=== PATIENT | female | born 1970 | race Caucasian/White ===

== ENCOUNTER 2017-01-15 18:53 | Emergency (ER) | payer MEDICAID ==
[~2017-01-15] VITALS: Ht 167.6 cm; Wt 78.0 kg
[2017-01-15] MEDS ORDERED: SODIUM CHLORIDE 0.9% 1,000 ML IV ONE (20:32)
[2017-01-15] MEDS ORDERED: KETOROLAC 30MG/ML VIAL IV STA (20:32)
[2017-01-15] MEDS ORDERED: ONDANSETRON HCL 4MG/2ML VIAL IV STA (20:32)
[2017-01-15 21:00] LABS: BASOPHILS % 0.5 % (0.0-2.0); EOSINOPHILS % 1.7 % (0.0-5.0); HEMATOCRIT. 37.9 % (36.0-48.0); HEMOGLOBIN. 12.6 g/dL (12.0-16.0); LYMPHOCYTES % 19.1 % (20.0-50.0); MEAN CORPUSCULAR HEMOGLOBIN 29.6 pg (28.0-32.0); MEAN CORPUSCULAR HGB CONC 33.3 g/dL (31.0-37.0); MEAN CORPUSCULAR VOLUME 88.7 fL (81.0-99.0); MEAN PLATELET VOLUME 9.5 fl (7.4-10.4); MONOCYTES % 4.2 % (2.0-8.0); NEUTROPHILS % 74.5 % (40.0-76.0); PLATELET 190 x1000/uL (130-400); RED BLOOD CELL COUNT 4.27 mill/uL (4.2-5.4); RED CELL DISTRIBUTION WIDTH 13.1 % (11.6-14.6); WHITE BLOOD COUNT 11.4 x1000/uL (4.5-11.0)
[2017-01-15 21:09] LABS: ALANINE AMINOTRANSFERASE 25 IU/L (13-61); ALBUMIN 4.2 g/dL (3.4-5.0); ANION GAP 15; CALCIUM 9.4 mg/dL (8.5-10.1); CARBON DIOXIDE 25 mEq/L (21-32); CHLORIDE 103 mEq/L (98-107); INDEX HEMOLYSI 1 (1-3); INDEX ICTERIC 1 (1-4); INDEX LIPEMIC 1 (1-3); UREA NITROGEN BLOOD 13 mg/dL (7-21); eGFR > 60 mL/min (>60)
[2017-01-15] MEDS ORDERED: ONDANSETRON HCL 4MG/2ML VIAL IV ONE (23:30)
[2017-01-15] MEDS ORDERED: MORPHINE SULFATE 4 MG/ML CPJ (NOT FOR IM USE) IV ONE (23:30)
[2017-01-16] MEDS ORDERED: INSULIN REGULAR 0.5UNIT/ML SYR(NEO) IV ONE (00:45)
[2017-01-16] MEDS ORDERED: INSULIN DETEMIR UD 100 UNITS/ML SYR SUBCUT ONE (01:00)
[2017-01-16] MEDS ORDERED: ONDANSETRON HCL 4MG/2ML VIAL IV ONE (02:15)
[2017-01-16] MEDS ORDERED: SODIUM CHLORIDE 0.9% 1,000 ML IV ONE (02:15)
[2017-01-16 07:40] VITALS: BP 155/75
== END 2017-01-16 07:50 | disposition short-term general hospital (02) ==
LOC: ER 18:54
DX: R51 Headache (principal); E11.65 Type 2 diabetes mellitus with hyperglycemia; D72.829 Elevated white blood cell count, unspecified; I10 Essential (primary) hypertension; R11.2 Nausea with vomiting, unspecified; E78.00 Pure hypercholesterolemia, unspecified; Z98.51 Tubal ligation status
CPT/HCPCS: 36415; 70450; 70551; 80053; 81025; 82962; 85025; 96361; 96372; 96374; 96375; 96376; 99285; J1815; J1885; J2270; J2405; J7030; Z7610

== ENCOUNTER 2020-07-22 08:56 | Inpatient (IN) | payer MEDICAID, OTHER ==
[~2020-07-22] VITALS: Ht 165.1 cm; Wt 61.7 kg
[2020-07-22] MEDS ORDERED: MORPHINE SULFATE 4 MG/ML CPJ (NOT FOR IM USE) IV STA (09:09)
[2020-07-22] MEDS ORDERED: ONDANSETRON HCL 4MG/2ML INJ IV STA (09:09)
[2020-07-22 09:36] LABS: BASOPHILS % 0.4 % (0.0-2.0); EOSINOPHILS % 0.8 % (0.0-5.0); HEMATOCRIT. 32.9 % (36.0-48.0); HEMOGLOBIN. 11.1 g/dL (12.0-16.0); MEAN CORPUSCULAR HEMOGLOBIN 29.6 pg (28.0-32.0); MEAN CORPUSCULAR VOLUME 87.6 fL (81.0-99.0); MEAN PLATELET VOLUME 9.2 fl (7.4-10.4); MONOCYTES % 4.4 % (2.0-8.0); NEUTROPHILS % 68.4 % (40.0-76.0); PLATELET 159 x1000/uL (130-400); RED BLOOD CELL COUNT 3.75 mill/uL (4.2-5.4)
[2020-07-22 09:46] LABS: CHLORIDE 111 mEq/L (98-107)
[2020-07-22] MEDS: METOPROLOL TARTRATE 25MG TABLET PO SCH ×2 (14:15→21:24)
[2020-07-22] MEDS ORDERED: NITROGLYCERIN 0.4MG TABLET SL SL PRN (14:30)
[2020-07-22] MEDS: ENOXAPARIN 40MG/0.4ML SYR SUBCUT SCH (15:00)
[2020-07-22] MEDS ORDERED: HYDROCODONE/ACETAMINOPHEN 5/325MG TABLET PO PRN (15:00)
[2020-07-22] MEDS ORDERED: CLONIDINE 0.1MG TABLET PO PRN (15:00)
[2020-07-22] MEDS ORDERED: DOCUSATE SODIUM 100MG CAPSULE PO PRN (15:00)
[2020-07-22] MEDS ORDERED: MAGNESIUM/ALUMINUM HYDROXIDE/SIMETHICONE 30ML UDC PO PRN (15:00)
[2020-07-22] MEDS ORDERED: ACETAMINOPHEN 325MG TABLET PO PRN (15:00)
[2020-07-22 15:26] LABS: CREATINE KINASE 107 IU/L (26-192)
[2020-07-22 15:28] LABS: CREATINE KINASE MB FRACTION < 1.0 ng/mL (0.5-3.6)
[2020-07-22 18:00] VITALS: BP_SYST 175; BP_DIAS 63; BP_DIAS 66
[2020-07-22 20:00] VITALS: BP 126/69
[2020-07-22] MEDS: ONDANSETRON HCL 4MG/2ML INJ IV PRN (20:59)
[2020-07-22] MEDS: ATORVASTATIN CALCIUM 20MG TABLET PO SCH (21:24)
[2020-07-22] MEDS: AMLODIPINE 2.5MG TABLET PO SCH (21:24)
[2020-07-22] MEDS ORDERED: DEXTROSE 50% WATER 50ML SYRINGE IV PRN (22:15)
[2020-07-22] MEDS ORDERED: INSULIN GLARGINE UD 100 UNITS/ML SYR SUBCUT SCH (23:30)
[2020-07-23] VITALS: BP 110/50
[2020-07-23 04:00] VITALS: BP 104/50
[2020-07-23] MEDS ORDERED: ACET-2708 MT (04:14)
[2020-07-23] MEDS ORDERED: MECL-115 PO (04:14)
[2020-07-23] MEDS ORDERED: METF-816 MT (04:14)
[2020-07-23] MEDS ORDERED: ASPI-1158 MT (04:14)
[2020-07-23] MEDS ORDERED: ATOR10TA69 PO (04:14)
[2020-07-23] MEDS ORDERED: ENAL20TA MT (04:14)
[2020-07-23 06:21] LABS: BASOPHILS % 0.3 % (0.0-2.0); EOSINOPHILS % 0.4 % (0.0-5.0); HEMATOCRIT. 34.4 % (36.0-48.0); HEMOGLOBIN. 11.4 g/dL (12.0-16.0); LYMPHOCYTES % 28.7 % (20.0-50.0); MEAN CORPUSCULAR HEMOGLOBIN 28.8 pg (28.0-32.0); MEAN CORPUSCULAR VOLUME 87.2 fL (81.0-99.0); MEAN PLATELET VOLUME 10.2 fl (7.4-10.4); MONOCYTES % 4.4 % (2.0-8.0); NEUTROPHILS % 66.2 % (40.0-76.0); PLATELET 169 x1000/uL (130-400); RED BLOOD CELL COUNT 3.95 mill/uL (4.2-5.4); RED CELL DISTRIBUTION WIDTH 15.2 % (11.6-14.6)
[2020-07-23] MEDS: INSULIN LISPRO 100 UNITS/ML SUBCUT SCH ×4 (06:27→21:55)
[2020-07-23] MEDS: BLOOD SUGAR DIAGNOSTIC STRIP TEST SCH ×4 (06:27→21:42)
[2020-07-23] MEDS: OMEPRAZOLE 20MG CAPSULE EXTENDED RELEASE PO SCH (06:43)
[2020-07-23 06:59] LABS: CHLORIDE 108 mEq/L (98-107)
[2020-07-23 07:06] LABS: PHOSPHORUS 4.3 mg/dL (2.5-4.9)
[2020-07-23 07:07] LABS: LDL CHOLESTEROL 86 mg/dL (5-100)
[2020-07-23 07:09] LABS: HDL CHOLESTEROL 43 mg/dL (40-59); T4 FREE 0.89 ng/dL (0.76-1.46)
[2020-07-23 08:00] VITALS: BP 146/52
[2020-07-23] MEDS: AMLODIPINE 2.5MG TABLET PO SCH ×2 (09:18→21:43)
[2020-07-23] MEDS: ASPIRIN 81MG TABLET PO SCH (09:18)
[2020-07-23] MEDS: METOPROLOL TARTRATE 25MG TABLET PO SCH ×2 (09:18→21:44)
[2020-07-23 12:00] VITALS: BP 147/47
[2020-07-23] MEDS ORDERED: IOHEXOL-350 100 ML BOTTLE ONE (12:52)
[2020-07-23] MEDS: CELECOXIB 100MG CAPSULE PO SCH (13:21)
[2020-07-23] MEDS: ONDANSETRON HCL 4MG/2ML INJ IV PRN (13:22)
[2020-07-23 16:03] VITALS: BP 101/56
[2020-07-23] MEDS: METFORMIN HCL 500MG TABLET PO SCH (16:42)
[2020-07-23] MEDS: ENOXAPARIN 40MG/0.4ML SYR SUBCUT SCH (16:42)
[2020-07-23 20:00] VITALS: BP 121/59
[2020-07-23] MEDS: ATORVASTATIN CALCIUM 20MG TABLET PO SCH (21:43)
[2020-07-24] VITALS: BP 126/48
[2020-07-24 04:00] VITALS: BP 121/57
[2020-07-24 06:13] LABS: BASOPHILS % 0.4 % (0.0-2.0); EOSINOPHILS % 1.4 % (0.0-5.0); HEMATOCRIT. 34.6 % (36.0-48.0); HEMOGLOBIN. 11.3 g/dL (12.0-16.0); LYMPHOCYTES % 36.2 % (20.0-50.0); MEAN CORPUSCULAR HEMOGLOBIN 28.5 pg (28.0-32.0); MEAN CORPUSCULAR VOLUME 87.2 fL (81.0-99.0); MEAN PLATELET VOLUME 9.8 fl (7.4-10.4); MONOCYTES % 6.1 % (2.0-8.0); NEUTROPHILS % 55.9 % (40.0-76.0); PLATELET 162 x1000/uL (130-400); RED BLOOD CELL COUNT 3.97 mill/uL (4.2-5.4); RED CELL DISTRIBUTION WIDTH 14.9 % (11.6-14.6)
[2020-07-24] MEDS: METFORMIN HCL 500MG TABLET PO SCH (06:47)
[2020-07-24] MEDS: OMEPRAZOLE 20MG CAPSULE EXTENDED RELEASE PO SCH (06:47)
[2020-07-24] MEDS: BLOOD SUGAR DIAGNOSTIC STRIP TEST SCH ×2 (06:50→11:58)
[2020-07-24] MEDS: INSULIN LISPRO 100 UNITS/ML SUBCUT SCH ×2 (06:50→11:58)
[2020-07-24 07:22] LABS: CHLORIDE 107 mEq/L (98-107)
[2020-07-24 08:00] VITALS: BP 129/60
[2020-07-24] MEDS: AMLODIPINE 2.5MG TABLET PO SCH (08:30)
[2020-07-24] MEDS: CELECOXIB 100MG CAPSULE PO SCH (08:30)
[2020-07-24] MEDS: METOPROLOL TARTRATE 25MG TABLET PO SCH (08:30)
[2020-07-24] MEDS: ASPIRIN 81MG TABLET PO SCH (08:30)
[2020-07-24 12:00] VITALS: BP 111/54
[2020-07-24 13:04] VITALS: BP 111/54
== END 2020-07-24 14:05 | disposition home or self-care (01) | DRG 203 ==
LOC: ER 08:56 → 5WST 10:15 → ENRESERV 16:15
PROVIDERS: ADMIT Internal Medicine; ATTEND Internal Medicine
DX: M94.0 Chondrocostal junction syndrome [Tietze] (principal); R07.89 Other chest pain; E11.9 Type 2 diabetes mellitus without complications; E78.00 Pure hypercholesterolemia, unspecified; I10 Essential (primary) hypertension; E78.5 Hyperlipidemia, unspecified; E87.8 Other disorders of electrolyte and fluid balance, not elsewhere classified; D64.9 Anemia, unspecified; Z88.0 Allergy status to penicillin; Z98.51 Tubal ligation status
CPT/HCPCS: 36415; 71045; 71275; 80048; 80053; 80061; 82550; 82553; 82962; 83036; 83735; 83880; 84100; 84439; 84443; 84484; 85025; 93005; 93306; 93970; 99285; J1650; J1815; J2270; J2405; Q9967

== ENCOUNTER 2022-07-25 08:59 | Emergency (ER) | payer MEDICAID ==
[~2022-07-25] VITALS: Ht 157.5 cm; Wt 69.0 kg
[~2022-07-25 08:59] MED LIST: ACET-2708 MT; ASPI-1406 MT; ATOR10TA69 PO; ENAL20TA18 MT; MECL-115 PO; METF-874 MT
[2022-07-25] MEDS ORDERED: KETOROLAC 30MG/ML VIAL IV STA (09:54)
[2022-07-25] MEDS ORDERED: METOCLOPRAMIDE HCL 10MG/2ML VIAL IV ONE (10:00)
[2022-07-25 10:20] LABS: CHLORIDE 107 mEq/L (98-107); HEMOGLOBIN. 12.1 g/dL (12.0-16.0); MEAN CORPUSCULAR HEMOGLOBIN 29.1 pg (28.0-32.0); MEAN CORPUSCULAR VOLUME 89.2 fL (81.0-99.0); MEAN PLATELET VOLUME 9.7 fl (7.4-10.4); PLATELET 175 x1000/uL (130-400); RED BLOOD CELL COUNT 4.15 mill/uL (4.2-5.4); RED CELL DISTRIBUTION WIDTH 14.3 % (11.6-14.6)
[2022-07-25 11:40] LABS: PLATELET ESTIMATE NORMAL
[2022-07-25 11:50] VITALS: BP 171/72
== END 2022-07-25 12:18 | disposition home or self-care (01) ==
LOC: ER 09:10 → EDBEDREQ 11:30 → ER 12:18 → CANBEDREQ 13:52
DX: R51.9 Headache, unspecified (principal); I10 Essential (primary) hypertension; E11.9 Type 2 diabetes mellitus without complications; E78.00 Pure hypercholesterolemia, unspecified; Z88.0 Allergy status to penicillin; Z79.82 Long term (current) use of aspirin; Z98.51 Tubal ligation status
CPT/HCPCS: 36415; 71045; 80053; 83880; 85025; 93005; 96374; 96375; 99285; J1885; J2765

== ENCOUNTER 2023-09-03 00:48 | Emergency (ER) | payer MEDICAID, OTHER ==
[~2023-09-03] VITALS: Ht 162.6 cm; Wt 70.0 kg
[~2023-09-03 00:48] MED LIST changes: +ENAL-79 MT; -ENAL20TA18 MT
[2023-09-03 00:50] VITALS: O2SAT 100
[2023-09-03] MEDS ORDERED: LABETALOL 5MG/ML SYR 20 MG/4 ML SYRINGE IV ONE (01:30)
[2023-09-03 01:51] LABS: BASOPHILS % 0.7 % (0.0-2.0); EOSINOPHILS % 0.8 % (0.0-5.0); HEMATOCRIT. 33.7 % (36.0-48.0); HEMOGLOBIN. 10.8 g/dL (12.0-16.0); LYMPHOCYTES % 25.2 % (20.0-50.0); MEAN CORPUSCULAR HEMOGLOBIN 28.2 pg (28.0-32.0); MEAN CORPUSCULAR HGB CONC 32.1 g/dL (31.0-37.0); MEAN CORPUSCULAR VOLUME 87.7 fL (81.0-99.0); MEAN PLATELET VOLUME 10.1 fl (7.4-10.4); MONOCYTES % 4.9 % (2.0-8.0); NEUTROPHILS % 68.4 % (40.0-76.0); PLATELET 164 x1000/uL (130-400); RED BLOOD CELL COUNT 3.85 mill/uL (4.2-5.4); WHITE BLOOD COUNT 11.8 x1000/uL (4.5-11.0)
[2023-09-03 01:57] LABS: CHLORIDE 112 mEq/L (98-107); INDEX HEMOLYSI 1 (1-3); INDEX ICTERIC 1 (1-4); INDEX LIPEMIC 1 (1-3); POTASSIUM 3.3 mEq/L (3.5-5.1); SODIUM 143 mEq/L (136-145)
[2023-09-03 02:07] LABS: ALANINE AMINOTRANSFERASE 41 IU/L (13-61); ALBUMIN 3.9 g/dL (3.4-5.0); ASPARTATE AMINOTRANSFERASE 21 IU/L (15-37); BILIRUBIN TOTAL 0.6 mg/dL (0.1-1.0); CALCIUM 9.3 mg/dL (8.5-10.1); CARBON DIOXIDE 23 mEq/L (21-32); CREATININE 0.8 mg/dL (0.6-1.3); GLUCOSE 152 mg/dL (70-105); PROTEIN TOTAL 7.9 g/dL (6.0-8.3); TROPONIN I HIGH SENSITIVITY 10 ng/L (<54); UREA NITROGEN BLOOD 21 mg/dL (7-21)
[2023-09-03 03:48] LABS: TROPONIN I HIGH SENSITIVITY 11 ng/L (<54)
[2023-09-03 06:00] VITALS: BP 141/63; PULSE 92; RESP 18; TEMP 98.2
[2023-09-03] MEDS ORDERED: LABE100T9 MT (06:03)
== END 2023-09-03 06:20 | disposition home or self-care (01) ==
LOC: ER 00:48
DX: R42 Dizziness and giddiness (principal); I10 Essential (primary) hypertension; E11.9 Type 2 diabetes mellitus without complications; E78.00 Pure hypercholesterolemia, unspecified; Z88.0 Allergy status to penicillin; Z98.51 Tubal ligation status
CPT/HCPCS: 80053; 85025; 84484; 36415; 71045; 70450; 93005; 99285; J3490; Z7610 ×2